=== PATIENT | female | born 1985 | race Two or more races ===

== ENCOUNTER 2024-09-22 06:42 | Day surgery (SDC) | payer OTHER ==
[2024-09-22] MEDS ORDERED: MIDAZOLAM HCL/PF 5 MG/ML VIAL IV ONE (09:00)
[2024-09-22] MEDS ORDERED: DIPHENHYDRAMINE HCL 50 MG/ML VIAL 1ML IV ONE (09:00)
[2024-09-22] MEDS ORDERED: MEPERIDINE HCL/PF 50 MG/ML VIAL IV ONE (09:00)
== END 2024-09-22 10:30 | disposition home or self-care (01) ==
LOC: AMB-ENDOS 06:42
PROVIDERS: ATTEND Surgery
DX: K29.60 Other gastritis without bleeding (principal); K44.9 Diaphragmatic hernia without obstruction or gangrene; R10.13 Epigastric pain; E66.09 Other obesity due to excess calories